=== PATIENT | male | born 1945 ===

== ENCOUNTER 2018-03-28 11:08 | Outpatient (CLI) | payer OTHER | END 2018-03-28 12:19 | disposition home or self-care (01) | LOC: TOM 11:08 → RAD 11:08 | DX: J69.0 Pneumonitis due to inhalation of food and vomit (principal); E03.5 Myxedema coma; E11.65 Type 2 diabetes mellitus with hyperglycemia; E07.89 Other specified disorders of thyroid ==

== ENCOUNTER 2019-03-18 13:30 | Outpatient (CLI) | payer OTHER | END 2019-03-18 13:40 | disposition home or self-care (01) | LOC: TOM 13:30 | DX: J44.9 Chronic obstructive pulmonary disease, unspecified (principal); J84.112 Idiopathic pulmonary fibrosis ==